=== PATIENT | male | born 1960 | race Caucasian/White ===

== ENCOUNTER 2023-10-24 11:21 | Day surgery (SDC) | payer OTHER ==
[2023-10-24] MEDS: Ringers Lactate 1,000 ML IV ONE (11:49)
[2023-10-24] MEDS ORDERED: LIDOCAINE 1% MPF 5 ML VIAL ONE (12:35)
[2023-10-24] MEDS ORDERED: propofoL 200 MG/20 ML VIAL IV ONE ×2 (12:35→12:37)
[2023-10-24 14:03] VITALS: BP 113/80; TEMP 97.2; O2SAT 100
--- NOTE | 2023-10-24 14:38 | EKG ---
Test Date: 2023-10-21 Test Time: 12:30:09 Letter Of Credit Clerk: BRIA MEASUREMENT RESULTS: Intervals: Rate: 68 AL: 182 QRSD: 86 QT: 390 QTc: 414 [place]: P: 29 AL: 182 QRS: 41 T: 40 INTERPRETIVE STATEMENTS: Normal sinus rhythm Normal ECG No previous ECG available for comparison Electronically Signed On 10-24-23 14:29:58 POST HOLE DIGGER by Antwan Montano
== END 2023-10-24 14:11 | disposition home or self-care (01) ==
LOC: OR 11:21
PROVIDERS: ATTEND Surgery
PROC: 0DBL8ZX Excision of Transverse Colon, Via Natural or Artificial Opening Endoscopic, Diagnostic (ICD-10-PCS; 2023-10-24)
PROC: 0DBN8ZX Excision of Sigmoid Colon, Via Natural or Artificial Opening Endoscopic, Diagnostic (ICD-10-PCS; principal; 2023-10-24 12:45)
DX: Z12.11 Encounter for screening for malignant neoplasm of colon (principal); K63.5 Polyp of colon; K64.8 Other hemorrhoids; K52.9 Noninfective gastroenteritis and colitis, unspecified
CPT/HCPCS: 93005; 88305; 45380; J2704 ×2; J2001; J7120